=== PATIENT | male | born 1955 | race Caucasian/White ===

== ENCOUNTER 2019-05-22 00:06 | Emergency (ER) | payer BC ==
--- NOTE | 2019-05-22 00:18 | ED Physician Documentation ---
Dyspnea - HISTORIAN Historian: patient - HPI Stated Complaint: shortness of breath Chief Complaint: Dyspnea Additional Information: Patient presents to ED with a 2-3 day history of increasing shortness of breath. Patient states the shortness of breath is due to pain upon inspiration on the right lung. He has a history of DVT/PE several years ago but has been off anticoagulation for several years without any issues. He states he had the blood clot issue around the time he was diagnosed with prostate cancer. Patient states tonight while at work he had more right sided lung pain with breathing so he came into the ER. He reports he has an appointment with his PCP tomorrow. Onset: days ago (2) Duration: continues in ED Initiating Event: denies: upper respiratory illness Severity: moderate Exacerbated By: laying flat Associated Symptoms: chest discomfort (right sided with inspiration ). denies: fever, bloody cough, productive cough - ROS CONST: no problems EYES/ENT: denies: nasal drainage GI/: denies: vomiting, nausea NEURO/PSYCH: denies: headache MS/SKIN/LYMPH: denies: neck pain - PAST HX Lung Disease: none Cardiac Disease: other (prostate cancer, benign brain tumor) PE Risk Factors: hx DVT, hx of PE Surgeries/Procedures: other (brain surgery ) Allergies/Adverse Reactions: Allergies Allergy/AdvReac Type Severity Reaction Status Date / Time No Known Allergies Allergy Verified 05/22/19 00:40 Home Medications: Ambulatory Orders Medication Instructions Recorded NK 05/22/19 - SOCIAL HX Smoking History: non-smoker Alcohol Use: none Drug Use: none - FAMILY HX Family History: none - REVIEWED ASSESSMENTS Nursing Assessment Reviewed: Yes Vitals Reviewed: Yes Progress - Progress Progress: 0200 Discussed with house nurse at [facility] for transfer. Waiting for call back. [address] Andujar, hospitalist, Agrees to take patient, he was informed of Bilateral pulmonary emboli with pulmonary infarct and right ventricular strain. States he will admit as observation and discharge in the am. - EKG/XRAY/CT Comments: 011 NSR [address] elevation ED Results Lab/Radiology - Lab Results Lab Results: wbc 12.9, hgb 12.4, hct 35.9, plt 222 Sodium 142, potassium 3.9, CO2 27, BUN 14, Cr 1.13 Trop <0.012, BNP 293, LFTs WNL - Radiology Radiology Impressions: Report Submission Date: May 22, 2019 1:39:49 AM CDT Patient Study Name: LORENA WILLOUGHBY Date: May 22, 2019 1:12:12 AM CDT Modality Type: CT\SR Gender: M Description: CT PE CHEST : 59 Institution: [facility] Physician: AYLIN CARREON Computed tomography chest with contrast History: Shortness of breath and right-sided chest pain Findings: Transverse chest sections are obtained after 91 mL intravenous Omnipaque 350 from which multiplanar reformatted images are obtained. Maximum intensity projections are not provided. Extensive pulmonary embolism is observed throughout the right lung including thrombus in the distal right pulmonary artery and extensive occlusive thrombus throughout the right lower lobe. A single small left lower lobe pulmonary embolus is present. The right heart is mildly enlarged. Coronary artery calcifications are observed. Extensive ground-glass infiltrate is present throughout the right lower lobe. Emphysema and moderate bibasilar atelectasis are present. Abdomen sections reveal liver and right renal cysts. Impression: 1. Extensive right and minimal left pulmonary embolism with right ventricular strain and right lower lobe infarction. 2. Emphysema, coronary atherosclerosis, and bibasilar atelectasis. Discussed with JIMENA Deal at 0139 VICE PRESIDENT PROCESS Electronically signed on May 22, 2019 1:39:49 AM CDT by: Austin Brothers Dyspnea Physical Exam - EXAM General Appearance: no acute distress, alert EENT: LEO Respiratory: no resp. distress, speaks full sentences, decreased air movement CVS: reg. rate & rhythm, no murmur Abdomen: non-tender, no distention. No: tenderness Skin: color nml, no rash Extremities: non-tender, no evidence of injury, no edema Neuro/Psych: oriented x3, CN's nml as tested, mood/affect nml Discharge Clincal Impression: Pulmonary embolism and infarction Referrals: Roberto Garcia MD [Primary Care Provider] - 2 Days Condition: Fair Disposition: XFER SHT-TRM HOSP Decision to Admit: NO Date of Decison to Admit: 05/22/19 Decision Time: 02:22
[2019-05-22] MEDS: MORPHINE SULFATE 4 MG/ML VIAL IV ONE (01:14)
[2019-05-22] MEDS: IPRATROPIUM/ALBUTEROL SULFATE 3 ML AMPUL.NEB NEB ONE (01:34)
[2019-05-22] MEDS: ENOXAPARIN SODIUM 100 MG/ML DISP.SYRIN SQ ONE (02:06)
[2019-05-22] MEDS: ENOXAPARIN SODIUM 30 MG/0.3 ML DISP.SYRIN SQ ONE (02:07)
[2019-05-22 03:18] VITALS: BP 125/64
[2019-05-22 07:33] LABS: BASOPHILS % 0.4 % (0.0-1.5); NEUTROPHILS # 10.3 # k/uL (1.4-7.7); eGFR (Non-African) > 60
--- NOTE | 2019-05-24 11:28 | Diagnostic Imaging Report ---
AYLIN CARREON [facility] [id number] [facility] [address] [place], [place]. [address] Report Submission Date: May 22, 2019 1:39:49 AM CDT Patient Study Name: LORENA WILLOUGHBY Date: May 22, 2019 1:12:12 AM CDT Modality Type: CT\SR Gender: M Description: CT PE CHEST : 57 Institution: [facility] Physician: AYLIN CARREON Computed tomography chest with contrast History: Shortness of breath and right-sided chest pain Findings: Transverse chest sections are obtained after 91 mL intravenous Omnipaque 350 from which multiplanar reformatted images are obtained. Maximum intensity projections are not provided. Extensive pulmonary embolism is observed throughout the right lung including thrombus in the distal right pulmonary artery and extensive occlusive thrombus throughout the right lower lobe. A single small left lower lobe pulmonary embolus is present. The right heart is mildly enlarged. Coronary artery calcifications are observed. Extensive ground-glass infiltrate is present throughout the right lower lobe. Emphysema and moderate bibasilar atelectasis are present. Abdomen sections reveal liver and right renal cysts. Impression: 1. Extensive right and minimal left pulmonary embolism with right ventricular strain and right lower lobe infarction. 2. Emphysema, coronary atherosclerosis, and bibasilar atelectasis. 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
== END 2019-05-22 03:00 | disposition short-term general hospital (02) ==
LOC: ED 00:06
DX: I26.99 Other pulmonary embolism without acute cor pulmonale (principal)
CPT/HCPCS: 71275; 80053; 83880; 84484; 85025; 93005; 94640; 96372; 96374; 99284; J1650; J2270; Q9967; S1016